=== PATIENT | female | born 1960 | race Caucasian/White ===

== ENCOUNTER 2019-01-06 13:29 | Emergency (ER) | payer OTHER ==
[~2019-01-06] VITALS: Ht 172.7 cm; Wt 81.2 kg
--- NOTE | 2019-01-06 14:09 | NUR ---
patient ambulated to bed 3
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
[2019-01-06] MEDS ORDERED: LIDOCAINE 1% 500 MG/50 ML VIAL INJ ONE ×2 (15:10)
[2019-01-06] MEDS ORDERED: NEOMYCIN/POLYMYXIN/BACITRACIN 0.9 GM/1 PKT TP ONE ×2 (15:10)
[2019-01-06] MEDS ORDERED: cefTRIAXone 1,000 MG in LIDOCAINE 1% ***ER ONLY *** 2.1 ML IM ONE (15:10)
[2019-01-06] MEDS ORDERED: traMADol 50 MG TAB PO ONE (15:10)
[2019-01-06] MEDS ORDERED: cefTRIAXone 1,000 MG VIAL ONE (15:32)
[2019-01-06] MEDS ORDERED: LIDOCAINE MPF 1% - 5 mL VIAL 10 ML ONE (15:33)
--- NOTE | 2019-01-06 16:03 | NUR ---
DR KWOK AT BEDSIDE
[2019-01-06 16:40] VITALS: BP 120/82
--- NOTE | 2019-01-06 16:42 | NUR ---
Patient discharged with v/s stable. Written and verbal after care instructions given and explained. Patient alert, oriented and verbalized understanding of instructions. Ambulatory with steady gait. All questions addressed prior to discharge. ID band removed. Patient advised to follow up with PMD. Rx of Keflex and Tramadol given. Patient educated on indication of medication including possible reaction and side effects. Opportunity to ask questions provided and answered.
== END 2019-01-06 16:42 | disposition home or self-care (01) ==
LOC: MED 13:29
DX: S61.012A Laceration without foreign body of left thumb without damage to nail, initial encounter (principal); Z88.0 Allergy status to penicillin; Z88.5 Allergy status to narcotic agent; W27.8XXA Contact with other nonpowered hand tool, initial encounter; Y93.89 Activity, other specified; Y92.89 Other specified places as the place of occurrence of the external cause; Y99.8 Other external cause status
CPT/HCPCS: 12002; 73130; 96372; 99283; J0696; J2001

== ENCOUNTER 2019-01-09 08:25 | Emergency (ER) | payer OTHER ==
[~2019-01-09] VITALS: Ht 172.7 cm; Wt 79.8 kg
--- NOTE | 2019-01-09 08:40 | NUR ---
pt ambulated to bed 10
[2019-01-09 08:46] VITALS: BP 137/88
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
[2019-01-09 09:14] VITALS: BP 137/88
--- NOTE | 2019-01-09 09:15 | NUR ---
Patient discharged with v/s stable. Written and verbal after care instructions given and explained. Patient verbalized understanding. Ambulatory with steady gait. All questions addressed prior to discharge. Advised to follow up with PMD.
== END 2019-01-09 09:15 | disposition home or self-care (01) ==
LOC: MED 08:25
DX: S61.012D Laceration without foreign body of left thumb without damage to nail, subsequent encounter (principal); Z48.00 Encounter for change or removal of nonsurgical wound dressing; Z88.0 Allergy status to penicillin; Z88.5 Allergy status to narcotic agent; W27.8XXD Contact with other nonpowered hand tool, subsequent encounter
CPT/HCPCS: 99281